=== PATIENT | female | born 1965 | race Caucasian/White ===

== ENCOUNTER 2021-04-13 13:10 | Emergency (ER) | payer OTHER, SELFPAY ==
--- NOTE | 2021-04-13 13:14 | ED.URI ---
HPI - URI/Sore Throat General Chief Complaint: Upper Respiratory Infection Stated Complaint: sore throat/ear pain Time Seen by Provider: 04/13/21 13:14 Source: patient and RN notes reviewed History of Present Illness HPI Narrative: Patient is a 55-year-old female who presents the urgent care with complaints of sore throat, loss of voice, bilateral ear pain worse on the left. Patient states that she went to a recently and was holding a lot of sick babies but otherwise denies of any known exposure to Covid or strep. States that her symptoms started yesterday. Patient has not taken anything [id number] for her symptoms. Denies of any fever, nausea, vomiting, shortness of breath or cough. No other acute complaints. No acute distress noted. Patient read a plan of care. Some parts of this dictation were generated by voice recognition software and may contain typographical and/or grammatical inaccuracies. Related Data Home Medications Medication Instructions Recorded Confirmed albuterol sulfate 2 puff INHALATION PRN 04/13/21 04/13/21 albuterol sulfate 2.5 mg INHALATION PRN PRN 04/13/21 04/13/21 digoxin 125 mcg PO DAILY 04/13/21 04/13/21 escitalopram oxalate 10 mg PO DAILY 04/13/21 04/13/21 furosemide 40 mg PO DAILY 04/13/21 04/13/21 insulin glargine [Lantus Solostar See Rx Instructions .ROUTE .COMPLEX 04/13/21 04/13/21 U-100 Insulin] insulin lispro [Admelog U-100 See Rx Instructions .ROUTE .COMPLEX 04/13/21 04/13/21 Insulin lispro] levothyroxine 125 mcg PO DAILY 04/13/21 04/13/21 metformin 500 mg PO BID 04/13/21 04/13/21 mometasone [Asmanex Twisthaler] 2 inh INHALATION DAILY 04/13/21 04/13/21 potassium chloride [Klor-Con M20] 20 meq PO DAILY 04/13/21 04/13/21 rosuvastatin 40 mg PO DAILY 04/13/21 04/13/21 Allergies Allergy/AdvReac Type Severity Reaction Status Date / Time ergotamine Allergy Mild Other Verified 04/13/21 13:25 Brio Allergy Intermediate asthma Uncoded 04/13/21 13:25 attack Review of Systems Review of Systems: CONSTITUTIONAL: Denies fever, chills, or sweats. EYES: Denies visual changes, redness, or discharge. ENT: Denies rhinorrhea, congestion. Reports of sore throat, bilateral otalgia and voice loss CARDIOVASCULAR: Denies chest pain, palpitations, or edema. RESPIRATORY: Denies cough or dyspnea. GASTROINTESTINAL: Denies abdominal pain, nausea, vomiting, or diarrhea. GENITOURINARY: Denies dysuria or hematuria. SKIN: Denies rash or itching. MUSCULOSKELETAL: Denies back pain, joint pain, or myalgia. NEUROLOGIC: Denies headache, numbness, or weakness. All other systems reviewed are negative, except as documented in HPI. [facility] Family History Family History (Updated 03/13/16 @ 23:19 by DOCTOR UNKNOWN) Mother Hypertension Family history of chronic obstructive pulmonary disease Family history of diabetes mellitus in first degree relative Sibling Hypertension Family history of diabetes mellitus in first degree relative Father Family history of congestive heart failure Other Asthma Family history of allergic disorder Social History Social History Smoking status: Never smoker Alcohol intake: never Comments At the time of my signature, I reviewed and agree with the nursing past medical, surgical, social, and family history. There is no relevant family history pertinent to the patient complaint. Exam Narrative: GENERAL: This is a well-nourished, well-developed patient, appears slightly fatigued HEAD: normocephalic, atraumatic. EYES: PERRL. Sclera clear/white. Vision is grossly intact. EARS: External ears normal, auditory canals clear and without drainage, TMs normal without perforation. Hearing grossly intact. NOSE: External nose normal with no obvious nasal discharge, nares without redness, no rhinorrhea. THROAT: Mucous membranes moist, posterior pharynx clear. Mild postnasal drainage NECK: Neck supple CARDIOVASCULAR: Regular rate and rhythm without murmurs, gallops
[2021-04-13 13:15] VITALS: BP 131/98; PULSE 78; RESP 18; TEMP 36.5; O2SAT 100
== END 2021-04-13 13:49 | disposition home or self-care (01) ==
PROVIDERS: Emergency Provider Nurse Practitioner Family
DX: J02.9 Acute pharyngitis, unspecified (principal); E11.9 Type 2 diabetes mellitus without complications; E03.9 Hypothyroidism, unspecified
CPT/HCPCS: 87081; 87880; 99213; G0463

== ENCOUNTER → 2022-10-19 14:44 | Outpatient (CLI) | payer OTHER, MEDICAID, SELFPAY ==
--- NOTE | ~2022-10-19 | XR_ITS ---
XR thoracic spine 3V DATE: 10/19/2022 15:17 INDICATION: Back pain TECHNIQUE: AP, lateral, swimmer views COMPARISON: None FINDINGS: No fracture or dislocation or bone destruction. The thoracic pedicles are intact. No parasp inal soft tissue thickening. There is mild degenerative spurring. IMPRESSION: Mild degenerative change of the thoracic spine Reviewed, dictated and finalized at location [facility]. [employer]
--- NOTE | ~2022-10-19 | XR_ITS ---
XR_CERV2-3V_CR DATE: 10/19/2022 15:17 INDICATION: Neck pain, limited range of motion since August. No injury. TECHNIQUE: AP, open-mouth, lateral views COMPARISON: None FINDINGS: There is reversal cervical curvature which may be due to muscle spasm. There is minimal anterolisthesis at C3-4. There is moderately severe degenerative disc disease and mild retrolisthesis at C5-6. Mild degenerative disc disease and mild retrolisthesis at C6-7. C1 and C2 are normally aligned and the odontoid process is intact. No fracture or dislocation or lock ed facet or prevertebral soft tissue swelling is detected. IMPRESSION: Reversal cervical curvature Moderately severe degenerative disc disease and mild retrolisthesis C5-6 Mild degenerative disc disease and minimal retrolisthesis at C6-7 Reviewed, dictated and finalized at [facility]. Reviewed, dictated and finalized at location [facility]. BUILDER SUPERVISOR
== END ==
PROVIDERS: PCP Internal Medicine; Visit Provider Internal Medicine
DX: M51.34 Other intervertebral disc degeneration, thoracic region (principal); M50.322 Other cervical disc degeneration at C5-C6 level; M50.323 Other cervical disc degeneration at C6-C7 level
CPT/HCPCS: 72040; 72072

== ENCOUNTER 2022-12-23 18:11 | Emergency (ER) | payer OTHER, MEDICAID, SELFPAY ==
--- NOTE | 2022-12-23 18:13 | ED.URI ---
HPI - URI/Sore Throat General Chief Complaint: Upper Respiratory Infection Stated Complaint: Sore throat; ear ache Time Seen by Provider: 12/23/22 18:13 Source: patient Mode of arrival: ambulatory Limitations: no limitations History of Present Illness HPI Narrative: Ne is a 57-year-old female patient presenting to the clinic today with complaints of sore throat and earache since yesterday. 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 No known fever or chills. MD elicited complaint: sore throat, nasal congestion and other (Ear pain) Related Data Home Medications Medication Instructions Recorded Confirmed albuterol sulfate 2.5 mg/3 mL 2.5 mg inhalation PRN PRN 04/13/21 12/23/22 (0.083 %) solution for nebulization Shortness Of Breath albuterol sulfate 90 mcg/actuation 2 puff inhalation PRN 04/13/21 12/23/22 aerosol inhaler digoxin 125 mcg (0.125 mg) tablet 125 mcg PO DAILY 04/13/21 12/23/22 escitalopram oxalate 10 mg tablet 10 mg PO DAILY 04/13/21 12/23/22 furosemide 40 mg tablet 40 mg PO DAILY 04/13/21 12/23/22 insulin glargine 100 unit/mL (3 See Rx Instructions .Route .COMPLEX 04/13/21 12/23/22 mL) subcutaneous pen (Lantus Solostar U-100 Insulin) insulin lispro 100 unit/mL See Rx Instructions .Route .COMPLEX 04/13/21 12/23/22 subcutaneous solution (Admelog U-100 Insulin lispro) levothyroxine 125 mcg tablet 125 mcg PO DAILY 04/13/21 12/23/22 metformin 500 mg tablet 500 mg PO BID 04/13/21 12/23/22 mometasone 220 mcg/actuation(120 2 inh inhalation DAILY 04/13/21 12/23/22 doses)breath activated powder inhaler (Asmanex Twisthaler) potassium chloride 20 mEq 20 meq PO DAILY 04/13/21 12/23/22 tablet,extended release(part/cryst) (Klor-Con M) rosuvastatin 40 mg tablet 40 mg PO DAILY 04/13/21 12/23/22 budesonide-formoterol HFA 160 2 puff inhalation BID 12/23/22 12/23/22 mcg-4.5 mcg/actuation aerosol inhaler (Symbicort) diltiazem HCl 120 mg tablet 120 mg PO BID 12/23/22 12/23/22 glimepiride 2 mg tablet 2 mg PO BID 12/23/22 12/23/22 Allergies Allergy/AdvReac Type Severity Reaction Status Date / Time ergotamine Allergy Mild Other Verified 12/23/22 18:18 Review of Systems Review of Systems: Pertinent positives per HPI. Patient denies any fever, chills, rash, headache, visual changes, dizziness, cough, shortness of breath, chest pain, palpitations, nausea, vomiting, diarrhea, constipation, abdominal pain, or any urinary issues. [facility] Family History Family History Mother Hypertension Family history of chronic obstructive pulmonary disease Family history of diabetes mellitus in first degree relative Sibling Hypertension Family history of diabetes mellitus in first degree relative Father Family history of congestive heart failure Other Asthma Family history of allergic disorder Social History Social History Smoking status: Never smoker Alcohol intake: never Comments At the time of my signature, I reviewed and agree with the nursing past medical, surgical, social, and family history. There is no relevant family history pertinent to the patient complaint. Exam Narrative: General: Well-developed, well nourished, in no apparent distress Head: Normocephalic, atraumatic Eyes: Pupils equally round and reactive to light bilaterally, EOM intact, sclera and conjunctive clear, no discharge, lids normal Ears: TMs intact and clear, ear canals ceruminous, no drainage, grossly hearing normal. Nose: Nares patent, clear discharge, no inflammation, no sinus tenderness. Mouth: Oral pharynx red mild tonsillar enlargement without lesions or masses, good dentition, MMM. Neck: Supple, trachea midline, no enlargement of anterior or posterior cervical nodes, no thyroid masses or goiter palpable. Cardio: Regular rate and rhythm, s1 and s2
[2022-12-23 18:21] VITALS: BP 119/81; PULSE 86; RESP 20; TEMP 36.6; O2SAT 96
[2022-12-23 18:36] VITALS: BP 119/81; PULSE 86; RESP 20; TEMP 36.6; O2SAT 96
== END 2022-12-23 18:43 | disposition home or self-care (01) ==
PROVIDERS: Emergency Provider Nurse Practitioner Family; PCP Internal Medicine
DX: H69.93 Unspecified Eustachian tube disorder, bilateral (principal); J06.9 Acute upper respiratory infection, unspecified; J02.9 Acute pharyngitis, unspecified; E78.00 Pure hypercholesterolemia, unspecified; J45.909 Unspecified asthma, uncomplicated; E11.9 Type 2 diabetes mellitus without complications; E03.9 Hypothyroidism, unspecified
CPT/HCPCS: 87081; 87880; 99213; G0463

== ENCOUNTER 2023-05-31 19:17 | Emergency (ER) | payer OTHER, MEDICAID, SELFPAY ==
[2023-05-31 20:04] VITALS: BP 136/84; PULSE 103; RESP 20; TEMP 36.6; O2SAT 100
--- NOTE | 2023-05-31 20:12 | ED.URI ---
HPI - URI/Sore Throat General Chief Complaint: Upper Respiratory Infection Stated Complaint: cough,sore throat Source: patient Mode of arrival: ambulatory Limitations: no limitations History of Present Illness HPI Narrative: 57-year-old female presents to [facility] with complaints of cough and sore throat since yesterday. Patient has been taking [id number] Tylenol with minimal relief. 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 patient denies fever, body aches, chills, nausea, vomiting, diarrhea, shortness of breath or wheezing. Patient denies recent travel. MD elicited complaint: cough and sore throat Onset (ago): day(s) (2) Able to tolerate fluids by mouth: Yes Exacerbating factors: swallowing Relieving factors: nothing Associated symptoms: denies other symptoms Treatments prior to arrival: acetaminophen Related Data Home Medications Medication Instructions Recorded Confirmed albuterol sulfate 2.5 mg/3 mL 2.5 mg inhalation PRN PRN 04/13/21 12/23/22 (0.083 %) solution for nebulization Shortness Of Breath albuterol sulfate 90 mcg/actuation 2 puff inhalation PRN 04/13/21 12/23/22 aerosol inhaler digoxin 125 mcg (0.125 mg) tablet 125 mcg PO DAILY 04/13/21 12/23/22 escitalopram oxalate 10 mg tablet 10 mg PO DAILY 04/13/21 12/23/22 furosemide 40 mg tablet 40 mg PO DAILY 04/13/21 12/23/22 insulin glargine 100 unit/mL (3 See Rx Instructions .Route .COMPLEX 04/13/21 12/23/22 mL) subcutaneous pen (Lantus Solostar U-100 Insulin) insulin lispro 100 unit/mL See Rx Instructions .Route .COMPLEX 04/13/21 12/23/22 subcutaneous solution (Admelog U-100 Insulin lispro) levothyroxine 125 mcg tablet 125 mcg PO DAILY 04/13/21 12/23/22 metformin 500 mg tablet 500 mg PO BID 04/13/21 12/23/22 mometasone 220 mcg/actuation(120 2 inh inhalation DAILY 04/13/21 12/23/22 doses)breath activated powder inhaler (Asmanex Twisthaler) potassium chloride 20 mEq 20 meq PO DAILY 04/13/21 12/23/22 tablet,extended release(part/cryst) (Klor-Con M) rosuvastatin 40 mg tablet 40 mg PO DAILY 04/13/21 12/23/22 budesonide-formoterol HFA 160 2 puff inhalation BID 12/23/22 12/23/22 mcg-4.5 mcg/actuation aerosol inhaler (Symbicort) diltiazem HCl 120 mg tablet 120 mg PO BID 12/23/22 12/23/22 glimepiride 2 mg tablet 2 mg PO BID 12/23/22 12/23/22 Allergies Allergy/AdvReac Type Severity Reaction Status Date / Time ergotamine Allergy Mild Other Verified 12/23/22 18:18 Review of Systems Constitutional: Constitutional: Denies chills, Denies fatigue, Denies fever(s) and Denies weakness ENT: Denies dizziness, Denies epistaxis, Denies nasal congestion and Reports sore throat Cardiovascular: Cardiovascular: Denies chest pain Respiratory: Respiratory: Reports cough, Denies dyspnea and Denies wheezing Gastrointestinal: Gastrointestinal: Denies diarrhea, Denies nausea and Denies vomiting Musculoskeletal: Musculoskeletal: Denies arthralgias and Denies joint swelling Integumentary/Breasts: Skin/Breast: Denies erythema and Denies rash Neurologic: Denies dizziness, Denies syncope and Denies headache(s) [facility] Family History Family History Mother Hypertension Family history of chronic obstructive pulmonary disease Family history of diabetes mellitus in first degree relative Sibling Hypertension Family history of diabetes mellitus in first degree relative Father Family history of congestive heart failure Other Asthma Family history of allergic disorder Social History Social History Smoking status: Never smoker Alcohol intake: never Comments At time of signature, I agree with nursing past medical, surgical, social and family history. There is no relevant family history pertinent to the presenting complaint. Exam Const: General: healthy appearing and no acute distress N
== END 2023-05-31 21:17 | disposition home or self-care (01) ==
PROVIDERS: Emergency Provider Nurse Practitioner Family; PCP Internal Medicine
DX: B34.9 Viral infection, unspecified (principal); Z20.822 Contact with and (suspected) exposure to COVID-19
CPT/HCPCS: 87081; 87426; 87804; 87880; 99213; C9803; G0463

== ENCOUNTER 2023-08-21 13:36 | Emergency (ER) | payer OTHER, MEDICAID, SELFPAY ==
[2023-08-21 14:02] VITALS: BP 135/71; PULSE 79; RESP 16; TEMP 36.6; O2SAT 100
[2023-08-21 14:04] VITALS: BP 135/71; PULSE 79; RESP 16; TEMP 36.6; O2SAT 100
--- NOTE | 2023-08-21 14:36 | ED.URI ---
HPI - URI/Sore Throat General Chief Complaint: Upper Respiratory Infection Stated Complaint: Cough,Asthma Time Seen by Provider: 08/21/23 14:37 Source: patient and RN notes reviewed Mode of arrival: ambulatory Limitations: no limitations History of Present Illness HPI Narrative: 57-year-old female presents concern for 2 day history of sore throat, nasal congestion, productive cough. Reports low-grade temperature. 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 MD elicited complaint: cough and nasal congestion Related Data Home Medications Medication Instructions Recorded Confirmed albuterol sulfate 2.5 mg/3 mL 2.5 mg inhalation PRN PRN 04/13/21 08/21/23 (0.083 %) solution for nebulization Shortness Of Breath albuterol sulfate 90 mcg/actuation 2 puff inhalation PRN 04/13/21 08/21/23 aerosol inhaler digoxin 125 mcg (0.125 mg) tablet 125 mcg PO DAILY 04/13/21 08/21/23 escitalopram oxalate 10 mg tablet 10 mg PO DAILY 04/13/21 08/21/23 furosemide 40 mg tablet 40 mg PO DAILY 04/13/21 08/21/23 insulin glargine 100 unit/mL (3 See Rx Instructions .Route .COMPLEX 04/13/21 08/21/23 mL) subcutaneous pen (Lantus Solostar U-100 Insulin) insulin lispro 100 unit/mL See Rx Instructions .Route .COMPLEX 04/13/21 08/21/23 subcutaneous solution (Admelog U-100 Insulin lispro) levothyroxine 125 mcg tablet 125 mcg PO DAILY 04/13/21 08/21/23 rosuvastatin 40 mg tablet 40 mg PO DAILY 04/13/21 08/21/23 budesonide-formoterol HFA 160 2 puff inhalation BID 12/23/22 08/21/23 mcg-4.5 mcg/actuation aerosol inhaler (Symbicort) diltiazem HCl 120 mg tablet 120 mg PO BID 12/23/22 08/21/23 glimepiride 2 mg tablet 2 mg PO BID 12/23/22 08/21/23 Allergies Allergy/AdvReac Type Severity Reaction Status Date / Time ergotamine Allergy Mild Other Verified 08/21/23 14:13 Review of Systems Review of Systems: CONSTITUTIONAL: Reports malaise, low-grade fever. EYES: Denies visual changes, redness, or discharge. ENT: Reports rhinorrhea, congestion, and sore throat. CARDIOVASCULAR: Denies chest pain, palpitations, or edema. RESPIRATORY: Reports productive cough. Denies dyspnea. GASTROINTESTINAL: Denies abdominal pain, nausea, vomiting, diarrhea SKIN: Denies rash or itching. MUSCULOSKELETAL: Denies myalgia. NEUROLOGIC: Denies headache. All systems reviewed & are unremarkable except as noted in HPI and below PMFSH Family History Family History Mother Hypertension Family history of chronic obstructive pulmonary disease Family history of diabetes mellitus in first degree relative Sibling Hypertension Family history of diabetes mellitus in first degree relative Father Family history of congestive heart failure Other Asthma Family history of allergic disorder Social History Social History Smoking status: Never smoker Alcohol intake: never Comments At time of signature, agree with nursing past medical, surgical, social and family history. There is no relevant family history pertinent to the presenting complaint Exam Narrative: GENERAL: Nontoxic-appearing, well-nourished, and in no acute distress. HEAD: Normocephalic EYES: PERRLA, conjunctivae clear ENT: Nares clear, turbinates edematous and erythematous, clear discharge. Mucous membranes moist. TM pearly smyth with sharp light reflex bilaterally; no tragal tenderness. Oropharynx not erythematous without lesions. Tonsils not enlarged and without exudate, no drooling, no hoarseness, no trismus, uvula midline. NECK: Supple. No lymphadenopathy CHEST: Clear to auscultation, breath sounds equal. No wheezing, rhonchi, rales, or stridor. No respiratory distress, speaks in full sentences. Cough noted HEART: Regular rate and rhythm. No murmur heard. SKIN: Warm, dry, no rash. NEURO: Alert and oriented x3. PSYCH: Normal mood and affect Course Course Emergency Course: Patient is aware
== END 2023-08-21 15:05 | disposition home or self-care (01) ==
PROVIDERS: Emergency Provider Nurse Practitioner; PCP Internal Medicine
DX: J06.9 Acute upper respiratory infection, unspecified (principal); Z20.822 Contact with and (suspected) exposure to COVID-19; I50.9 Heart failure, unspecified; E78.00 Pure hypercholesterolemia, unspecified; J45.909 Unspecified asthma, uncomplicated; E11.9 Type 2 diabetes mellitus without complications
CPT/HCPCS: 87081; 87426; 87804; 87880; 99213; C9803; G0463

== ENCOUNTER 2023-09-15 18:29 | Emergency (ER) | payer OTHER, MEDICAID, SELFPAY ==
[2023-09-15 18:40] VITALS: BP 124/75; PULSE 70; RESP 12; TEMP 36.2
--- NOTE | 2023-09-15 19:15 | ED.GENADULT ---
HPI - General Adult General Chief complaint: Upper Respiratory Infection Stated complaint: cough,sore throat, headache Source: patient, RN notes reviewed and old records reviewed Mode of arrival: ambulatory Limitations: no limitations History of Present Illness HPI narrative: [age] year female presents to [facility] with complaint of cough, congestion, sore throat, myalgias that started yesterday evening. Patient taking Tylenol for symptoms without relief. Patient denies chest pain, shortness of breath, weakness, dizziness. Related Data Home Medications Medication Instructions Recorded Confirmed albuterol sulfate 2.5 mg/3 mL 2.5 mg inhalation PRN PRN 04/13/21 08/21/23 (0.083 %) solution for nebulization Shortness Of Breath albuterol sulfate 90 mcg/actuation 2 puff inhalation PRN 04/13/21 08/21/23 aerosol inhaler digoxin 125 mcg (0.125 mg) tablet 125 mcg PO DAILY 04/13/21 08/21/23 escitalopram oxalate 10 mg tablet 10 mg PO DAILY 04/13/21 08/21/23 furosemide 40 mg tablet 40 mg PO DAILY 04/13/21 08/21/23 insulin glargine 100 unit/mL (3 See Rx Instructions .Route .COMPLEX 04/13/21 08/21/23 mL) subcutaneous pen (Lantus Solostar U-100 Insulin) insulin lispro 100 unit/mL See Rx Instructions .Route .COMPLEX 04/13/21 08/21/23 subcutaneous solution (Admelog U-100 Insulin lispro) levothyroxine 125 mcg tablet 125 mcg PO DAILY 04/13/21 08/21/23 rosuvastatin 40 mg tablet 40 mg PO DAILY 04/13/21 08/21/23 budesonide-formoterol HFA 160 2 puff inhalation BID 12/23/22 08/21/23 mcg-4.5 mcg/actuation aerosol inhaler (Symbicort) diltiazem HCl 120 mg tablet 120 mg PO BID 12/23/22 08/21/23 glimepiride 2 mg tablet 2 mg PO BID 12/23/22 08/21/23 Allergies Allergy/AdvReac Type Severity Reaction Status Date / Time ergotamine Allergy Mild Other Verified 08/21/23 14:13 Review of Systems Constitutional: Constitutional: Reports no additional constitutional complaints, Reports body ache(s), Denies chills, Reports fatigue, Denies fever(s) and Denies headache(s) Eyes: Eyes: Reports no additional eye complaints and Denies blurry vision ENT: Reports system reviewed and no additional complaints, except as documented, Denies vertigo, Denies dizziness, Denies ear discharge, Denies otalgia, Denies facial pain, Reports headache(s), Reports nasal congestion, Denies nasal discharge, Denies sinus pain, Reports sinus pressure and Reports sore throat Cardiovascular: Cardiovascular: Reports no additional cardiovascular complaints, Denies chest pain, Denies chest pain at rest, Denies rapid heart rate and Denies dyspnea Respiratory: Respiratory: Reports no additional respiratory complaints, Reports chest congestion, Reports cough, Denies pain on inspiration, Denies pain with cough and Denies dyspnea Gastrointestinal: Gastrointestinal: Denies abdominal pain, Denies diarrhea, Denies nausea and Denies vomiting Integumentary/Breasts: Skin/Breast: Denies rash Neurologic: Reports system reviewed and no additional complaints, except as documented, Denies vertigo, Denies dizziness and Denies headache(s) Endocrine: Endocrine: Denies fatigue PMFSH Family History Family History Mother Hypertension Family history of chronic obstructive pulmonary disease Family history of diabetes mellitus in first degree relative Sibling Hypertension Family history of diabetes mellitus in first degree relative Father Family history of congestive heart failure Other Asthma Family history of allergic disorder Social History Social History Smoking status: Never smoker Alcohol intake: never Comments At the time of my signature, I reviewed and agree with the nursing past medical, surgical, social, and family history. There is no relevant family history pertinent to the patient complaint. Exam Const: General: cooperative, healthy appea
== END 2023-09-15 19:24 | disposition home or self-care (01) ==
PROVIDERS: Emergency Provider Registered Nurse; PCP Internal Medicine
DX: B34.9 Viral infection, unspecified (principal); Z20.822 Contact with and (suspected) exposure to COVID-19; I50.9 Heart failure, unspecified; E78.00 Pure hypercholesterolemia, unspecified; J45.909 Unspecified asthma, uncomplicated; E11.9 Type 2 diabetes mellitus without complications
CPT/HCPCS: 87081; 87426; 87804; 87880; 99213; G0463

== ENCOUNTER 2023-10-06 12:10 | Emergency (ER) | payer OTHER, MEDICAID, SELFPAY ==
--- NOTE | ~2023-10-06 | XR_ITS ---
EXAMINATION: XR forearm RT 2V INDICATION: Right forearm pain TECHNIQUE: Two views of the right forearm are obtained. COMPARISON: None available FINDINGS: No fracture, dislocation, or subluxation. The bones, soft tissues, and joint spaces are nor mal. IMPRESSION: 1. No acute osseous abnormality. Reviewed, dictated and finalized at location B. DEPARTMENT INTERN
--- NOTE | ~2023-10-06 | XR_ITS ---
EXAMINATION: XR shoulder RT min 2V INDICATION: Right shoulder pain TECHNIQUE: Four views of the right shoulder are obtained on five radiographs. COMPARISON: None FINDINGS: Normal alignment. No fracture. 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 Soft tissues are unremarkable. IMPRESSION: 1. No acute osseous abnormality. Reviewed, dictated and finalized at location B. TENANCE TEAM LEADER
[2023-10-06 12:25] VITALS: BP 139/84; PULSE 79; RESP 16; TEMP 36.4; O2SAT 100
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
== END 2023-10-06 13:15 | disposition home or self-care (01) ==
PROVIDERS: Emergency Provider Registered Nurse; PCP Internal Medicine
DX: S61.551A Open bite of right wrist, initial encounter (principal); Y04.1XXA Assault by human bite, initial encounter; Y99.0 Civilian activity done for income or pay; S40.021A Contusion of right upper arm, initial encounter; W20.8XXA Other cause of strike by thrown, projected or falling object, initial encounter; I50.9 Heart failure, unspecified; E78.00 Pure hypercholesterolemia, unspecified; J45.909 Unspecified asthma, uncomplicated; E11.9 Type 2 diabetes mellitus without complications; E03.9 Hypothyroidism, unspecified
CPT/HCPCS: 73030; 73090; 99214; G0463

== ENCOUNTER 2023-11-07 13:16 | Emergency (ER) | payer MEDICAID, SELFPAY ==
--- NOTE | ~2023-11-07 | XR_ITS ---
EXAMINATION: [id number] Exam Date/Time: 11/07/2023 14:00 CDT HISTORY: rt lateral low rib pain s/p injury 3 days ago Comparison: None available. RESULT: Lines, tubes, and devices: Cholecystectomy clips. Cardiac monitoring device. Lungs and pleura: Clear. Cardiothymic silhouette: Unremarkable. Other: No acute upper abdominal finding. Cortical angulation at the costochondral junction of the ri ght 10th and 11th ribs IMPRESSION: Possible nondisplaced angulated fractures of the right 10th and 11th lateral ribs. Reviewed, dictated and finalized at location K. IMPRESSION: Possible nondisplaced angulated fractures of the right 10th and 11th lateral ri bs.
[2023-11-07 13:28] VITALS: BP 125/82; PULSE 76; RESP 16; TEMP 35.9; O2SAT 99
[2023-11-07 13:29] VITALS: BP 125/82; PULSE 76; RESP 16; TEMP 35.9; O2SAT 99
--- NOTE | 2023-11-07 13:56 | ED.GENADULT ---
HPI - General Adult General Chief complaint: Fall Stated complaint: right side rib pain Source: patient Mode of arrival: ambulatory Limitations: no limitations History of Present Illness HPI narrative: Patient presents for evaluation of right lateral chest wall pain for the last 3 days. She was kneeling while caulking a toilet and her right lateral chest wall came into contact with the toilet while leaning over it. Since that time she has experienced constant pain. She does not provide me with a descriptive quality to the pain but states that at rest it is 2/10 in severity. With movement, palpation of the area, inspiration or coughing the severity increased to 50 out of 10. She has taken tylenol for her symptoms. She denies shortness of breath. She cannot take NSAIDs as she has a history of a gastric bypass. She does not smoke. Related Data Home Medications Medication Instructions Recorded Confirmed albuterol sulfate 2.5 mg/3 mL 2.5 mg inhalation PRN PRN 04/13/21 11/07/23 (0.083 %) solution for nebulization Shortness Of Breath digoxin 125 mcg (0.125 mg) tablet 125 mcg PO DAILY 04/13/21 11/07/23 escitalopram oxalate 10 mg tablet 10 mg PO DAILY 04/13/21 11/07/23 furosemide 40 mg tablet 40 mg PO DAILY 04/13/21 11/07/23 insulin glargine 100 unit/mL (3 See Rx Instructions .Route .COMPLEX 04/13/21 11/07/23 mL) subcutaneous pen (Lantus Solostar U-100 Insulin) insulin lispro 100 unit/mL See Rx Instructions .Route .COMPLEX 04/13/21 11/07/23 subcutaneous solution (Admelog U-100 Insulin lispro) levothyroxine 125 mcg tablet 125 mcg PO DAILY 04/13/21 11/07/23 rosuvastatin 40 mg tablet 40 mg PO DAILY 04/13/21 11/07/23 budesonide-formoterol HFA 160 2 puff inhalation BID 12/23/22 11/07/23 mcg-4.5 mcg/actuation aerosol inhaler (Symbicort) diltiazem HCl 120 mg tablet 120 mg PO BID 12/23/22 11/07/23 glimepiride 2 mg tablet 2 mg PO BID 12/23/22 11/07/23 Allergies Allergy/AdvReac Type Severity Reaction Status Date / Time ergotamine Allergy Mild Other Verified 11/07/23 13:27 Review of Systems Review of Systems: CONSTITUTIONAL: Denies fever, chills, or sweats. EYES: Denies visual changes, redness, or discharge. ENT: Denies rhinorrhea, congestion, sore throat, or otalgia. CARDIOVASCULAR: Denies chest pain, palpitations, or edema. RESPIRATORY: Denies cough or dyspnea. GASTROINTESTINAL: Denies abdominal pain, nausea, vomiting, or diarrhea. GENITOURINARY: Denies dysuria or hematuria. SKIN: Denies rash or itching. MUSCULOSKELETAL: Reports pain in the right lateral ribs. NEUROLOGIC: Denies headache, numbness, dizziness, or weakness. PSYCHIATRIC: Denies anxiety or depression. [facility] Past Medical History Medical History (Updated 11/07/23 @ 14:51 by THEODORE Gates, ) Asthma Diabetes Hypertension Rib fractures Thyroid disorder Surgical History Surgical History History of gastric bypass Family History Family History Mother Hypertension Family history of chronic obstructive pulmonary disease Family history of diabetes mellitus in first degree relative Sibling Hypertension Family history of diabetes mellitus in first degree relative Father Family history of congestive heart failure Other Asthma Family history of allergic disorder Social History Social History Smoking status: Never smoker Alcohol intake: never Substance use: never Living arrangements: with family Gender identity (if verbalized by the patient): Female Sexual Orientation (if Verbalized by the Patient): Straight or Heterosexual Spiritual care concerns: No Exam Narrative: GENERAL: Well-appearing, well-nourished, and in no acute distress. HEAD: Normocephalic, atraumatic. EYES: PERRLA and EOMI. ENT: Nares clear, no rhinorrh
== END 2023-11-07 14:55 | disposition home or self-care (01) ==
PROVIDERS: Emergency Provider Nurse Practitioner; PCP Internal Medicine
DX: R07.81 Pleurodynia (principal); S22.41XA Multiple fractures of ribs, right side, initial encounter for closed fracture; W22.09XA Striking against other stationary object, initial encounter; Z98.84 Bariatric surgery status; J45.909 Unspecified asthma, uncomplicated; E11.9 Type 2 diabetes mellitus without complications; Z79.4 Long term (current) use of insulin; Z79.84 Long term (current) use of oral hypoglycemic drugs; I10 Essential (primary) hypertension; E07.9 Disorder of thyroid, unspecified
CPT/HCPCS: 71101; 99213; G0463